=== PATIENT | female | born 1950 | race Caucasian/White ===

== ENCOUNTER 2017-01-21 05:56 | Day surgery (SDC) | payer OTHER ==
[~2017-01-21] VITALS: Ht 162.6 cm; Wt 62.7 kg
[~2017-01-21 05:56] MED LIST: SODIUM CHLORIDE 0.9% 1,000 ML IV ONE
[2017-01-21] MEDS ORDERED: SODIUM CHLORIDE 0.9% 1,000 ML IV ONE (06:09)
[2017-01-21] MEDS ORDERED: ASCO500 PO (06:41)
[2017-01-21] MEDS ORDERED: ASPI81 PO (06:41)
[2017-01-21] MEDS ORDERED: OXYB5 PO (06:41)
[2017-01-21] MEDS ORDERED: MONT10TA21 PO (06:41)
[2017-01-21] MEDS ORDERED: ALBU8.5H IH (06:41)
[2017-01-21] MEDS ORDERED: PRED10 PO (06:41)
[2017-01-21] MEDS ORDERED: FLUO-191 PO (06:41)
[2017-01-21] MEDS ORDERED: ALEN35TA32 PO (06:41)
[2017-01-21] MEDS ORDERED: ARIP2 PO (06:41)
[2017-01-21] MEDS ORDERED: TIOT4MIS2 PO (06:41)
[2017-01-21] MEDS ORDERED: THIA100 PO (06:41)
[2017-01-21] MEDS ORDERED: BENZ-26 PO (06:41)
[2017-01-21] MEDS ORDERED: NYST5L PO (06:41)
[2017-01-21] MEDS ORDERED: TOPI25 PO (06:41)
[2017-01-21] MEDS ORDERED: ADV500 IH (06:41)
[2017-01-21] MEDS ORDERED: BACL10TA PO (06:41)
[2017-01-21] MEDS ORDERED: FentaNYL CITRATE-PF 100 MCG/2 ML VIAL ONE (07:36)
[2017-01-21] MEDS ORDERED: MIDAZOLAM HCL 2 MG/2 ML VIAL ONE (07:36)
[2017-01-21] MEDS ORDERED: MethylPREDNISolone SOD SUCC 125 MG/2 ML VIAL IVP ONE (08:45)
[2017-01-21] MEDS ORDERED: MethylPREDNISolone SOD SUCC 125 MG/2 ML VIAL ONE (09:04)
[2017-01-21] MEDS ORDERED: LIDOCAINE HCL 2% 30 ML JELLY TP ONE (17:53)
[2017-01-21] MEDS ORDERED: ALBUTEROL SULFATE 2.5 MG/0.5 ML NEB SOLUTION NEB ONE (17:53)
[2017-01-21] MEDS ORDERED: LIDOCAINE HCL 4% 50 ML SOLUTION TP ONE (17:53)
[2017-01-21] MEDS ORDERED: EPINEPHrine 1:1,000 [1 MG/ML] AMP IM ONE (17:53)
[2017-01-21] MEDS ORDERED: BENZOCAINE 20% 50 MCG/SPRAY 57 GM TP ONE (17:53)
[2017-01-21] MEDS ORDERED: OXYGEN THERAPY IH SCH (20:00)
== END 2017-01-21 09:55 | disposition home or self-care (01) ==
LOC: SURGERY 05:56
PROVIDERS: ATTEND Internal Medicine Critical Care Medicine
DX: J47.9 Bronchiectasis, uncomplicated (principal); R91.1 Solitary pulmonary nodule
CPT/HCPCS: 31623; 31624; 71010; 87015 ×2; 87070; 87101; 87205; 87220; 88108; 88305; 88312; 93005; J0171; J2250; J2930; J3010; J7030